=== PATIENT | male | born 1995 | race Hispanic/Latino ===

== ENCOUNTER 2020-11-06 22:15 | Emergency (ER) | payer OTHER ==
[~2020-11-06] VITALS: Ht 170.2 cm; Wt 63.5 kg
[2020-11-06 22:21] VITALS: BP 127/70
[2020-11-07 02:45] VITALS: BP 124/56
== END 2020-11-07 02:49 | disposition home or self-care (01) ==
LOC: EDH 22:15
DX: U07.1 COVID-19 (principal); J06.9 Acute upper respiratory infection, unspecified
CPT/HCPCS: 87635; C9803